=== PATIENT | female | born 1985 | race Caucasian/White ===

== ENCOUNTER 2017-11-06 20:28 | Emergency (ER) | payer BC, SELFPAY ==
[2017-11-06 20:32] VITALS: BP 147/88; PULSE 80; RESP 16; TEMP 36.8; O2SAT 98
--- NOTE | 2017-11-06 20:36 | ED.GENADUL_ITS ---
Disposition Clinical Impression: Renal colic on right side Disposition: HOME Condition: Good Instructions: Hydrocodone/Acetaminophen (By mouth), Renal Colic (ED), Ibuprofen (By mouth), Ondansetron (By mouth) Additional Instructions: Use ibuprofen for pain but if needed may use Vicodin for severe pain. Use Zofran for nausea. Follow-up with primary care at end of week if not better. Return to ED for fever, vomiting, worsening pain. Prescriptions: Hydrocodone Bit/Acetaminophen [Hydrocodon-Acetaminophen 5-325] 1 tab PO Q4H PRN #10 tablet PRN Reason: Ibuprofen 600 mg PO Q8H PRN #15 tablet PRN Reason: Pain Ondansetron ODT [Zofran Odt] 4 mg PO Q6H PRN #10 tabef PRN Reason: Nausea / Vomiting Referrals: Kelly Case [Primary Care Provider] - Medical Decision Making - Lab Data Results reviewed for labs ordered during visit: Yes - Medical Decision Making Patient fairly comfortable at this point. She is reporting minimal pain. She has previously passed all other stones on her own. Will place an IV to check CBC and chemistries. Will check a urine test and urinalysis. If we are able to control her pain easily and her labs and urinalysis look good we will forego imaging tonight. If there are any concerns will proceed with stone study as needed. Very comfortable at this point. Urinalysis with blood in it but no evidence of infection. White count normal. Kidney function normal. Patient comfortable without imaging studies tonight. Will send her home with instructions to use ibuprofen for pain with backup of Vicodin if needed. Zofran as needed for nausea. Strain urine and follow-up with primary care at end of week if still uncomfortable. Return to ED for fever, worsening pain, vomiting. Discharged in stable condition. Patient was given the state information sheet regarding narcotics. Informed consent was obtained. Review of the [place] prescription monitoring site reveals no narcotic prescriptions within the last year. History of Present Illness - General Chief complaint: Urinary Stated complaint: KIDNEY STONE? Time Seen by Provider: 11/06/17 20:36 Source: patient Mode of arrival: ambulatory Limitations: no limitations - History of Present Illness Initial comments: Patient presents to the ED with right lower quadrant, colicky, sharp, intermittent pain that started about 5 hours ago. It is very similar to previous kidney stones. She has had nausea and vomiting with intense pain. She has urgency but no dysuria or hematuria. She has had no fever. She has no back pain. All of her stones previously have been small passed on their own. She is otherwise healthy. She had been fine up until today. - Related Data Hydrocodone Bit/Acetaminophen [Hydrocodon-Acetaminophen 5-325] 1 tab PO Q4H PRN #10 tablet 11/06/17 Ibuprofen 600 mg PO Q8H PRN #15 tablet 11/06/17 Ondansetron ODT [Zofran Odt] 4 mg PO Q6H PRN #10 tabef 11/06/17 Allergies Allergy/AdvReac Type Severity Reaction Status Date / Time latex AdvReac Mild Skin Rash Unverified 11/06/17 20:36 Review of Systems Constitutional: denies: chills, fever Eyes: denies: eye discharge, vision change ENT: denies: ear pain, congestion Respiratory: denies: cough, shortness of breath Cardiovascular: denies: chest pain, syncope Gastrointestinal: abdominal pain, nausea, vomiting. denies: diarrhea Genitourinary: urgency, frequency. denies: dysuria, hematuria Musculoskeletal: denies: back pain Skin: denies: rash Neurological: denies: headache, weakness, numbness Past Medical History - Past Medical History kidney stones Surgical history: non-contributory - Social History Smoking status: former smoker General Exam - General Limitations: no limitations General appearance: alert, in no apparent distress - Head Head exam: Present: atraumatic, normocephalic - Eye Eye exam: Present: normal apperance - Neck Neck exam: Present: normal inspection, full ROM - Respiratory Respiratory exam: Present: normal lung sounds bilaterally - Cardiovascular Cardiovascular Exam: Present: regular rate, normal rhythm, normal heart sounds - GI/Abdominal GI/Abdominal exam: Present: soft. Absent: distended, tenderness, guarding, rebound - Extremities Exam Extremities exam: Present: normal inspection - Back Exam Back exam: Present: normal inspection, full ROM. Absent: CVA tenderness (R), CVA tenderness (L) - Neurological Exam Neurological exam: Present: alert, oriented X3, CN II-XII intact. Absent: motor sensory deficit - Psychiatric Psychiatric exam: Present: normal affect, normal mood - Skin Skin exam: Present: warm, dry, intact Course Vital Signs - 24 hr 11/06/17 20:32 Temperature 98.2 F Pulse 80 Respiratory 16 Rate Blood Pressure 147/88 Pulse Oximetry 98
[2017-11-06 21:04] LABS: Abs Immature Grans 0.03 k/cumm (0.0-0.09); Absolute Basophil Count 0.03 k/cumm (0.0-0.2); Absolute Eosinophil Count 0.04 k/cumm (0.0-0.7); Absolute Lymphocyte Count 2.32 k/cumm (1.2-3.4); Absolute Monocyte Count 0.74 k/cumm (0.11-0.7); Absolute Neutrophil Count 7.66 k/cumm (1.2-6.7); Basophils % 0.3; Eosinophils % 0.4; HCT 41.9 % (36.0-46.0); HGB 13.8 g/dL (12.0-15.5); Immature Grans % 0.3; Lymphocytes % 21.4; Mean Corp. HGB Concentration 32.9 g/dL (32.0-36.0); Mean Corpuscular Hemoglobin 29.9 pg (27.0-33.0); Mean Corpuscular Volume 90.9 fL (80-95); Mean Platelet Volume 9.3 fL (8.0-11.0); Monocytes % 6.8; Neutrophils % 70.8; Platelet Count 318 x1000/uL (130-400); RBC 4.61 m/cumm (4.00-5.20); White Blood Cell Count 10.82 k/cumm (4.4-10.8)
[2017-11-06 21:05] LABS: Bilirubin Negative (Negative); Blood Large (Negative); Clarity Clear; Glucose Negative (Negative); Ketones 40 mg/dL (Negative); Leukocyte Esterase Negative (Negative); Nitrite Negative (Negative); Specific Gravity 1.015 (1.005-1.025); Urobilinogen 0.2 EU/dL (Up TO 0.2); pH 5.5 (5-8)
[2017-11-06] MEDS: Ketorolac 15 MG/ML VIAL IVP (21:06)
[2017-11-06] MEDS: Lactated Ringers 1,000 ML 1000 ML IV (21:06)
[2017-11-06 21:17] LABS: Anion Gap 9.9 mmol/L (3-11); BUN 14 mg/dL (7-18); CO2 25.1 mmol/L (21.0-32.0); CREATININE 1.03 mg/dL (0.55-1.02); Calcium 9.5 mg/dL (8.5-10.1); Chloride 103 mmol/L (98-107); Glucose 96 mg/dL (70-100); Potassium 3.8 mmol/L (3.5-5.1); Sodium 138 mmol/L (136-145)
[2017-11-06 21:20] LABS: RBC >50 (0-2)
[2017-11-06 21:21] LABS: Bacteria Few HPF (Negative); C & S Indicated? Yes; Crystals Negative HPF (Negative); Epithelial Cells Few HPF (Negative); Mucus Trace (Negative)
[2017-11-06] MEDS: HYDROcodone 5/Acetaminophen 325 TAB PO (22:00)
[2017-11-06] MEDS: Ondansetron O.D.T. 4 MG TABEF PO (22:00)
[2017-11-06 22:07] VITALS: BP 144/81; PULSE 72; RESP 16; TEMP 36.9; O2SAT 100
== END 2017-11-06 22:07 | disposition home or self-care (01) ==
PROVIDERS: Emergency Provider Emergency Medicine; PCP Nurse Practitioner
DX: N23 Unspecified renal colic (principal); R11.2 Nausea with vomiting, unspecified; Z87.442 Personal history of urinary calculi
CPT/HCPCS: 36415; 80048; 81025; 96361; 96374; 99284; 81003; 81015; 85025; 87086; J1885

== ENCOUNTER 2017-12-27 09:33 | Outpatient (CLI) | payer BC, SELFPAY ==
[2017-12-27 11:17] LABS: Cholesterol 176 mg/dL (50-200); Glucose 100 mg/dL (70-100); HDL Cholesterol 69 mg/dL (40-60); LDL CHOLESTEROL 99 mg/dL (<100); Triglyceride 40 mg/dL (30-150)
== END 2017-12-27 09:53 ==
PROVIDERS: PCP Nurse Practitioner; Visit Provider Nurse Practitioner
DX: Z00.00 Encounter for general adult medical examination without abnormal findings (principal); Z13.1 Encounter for screening for diabetes mellitus; Z13.220 Encounter for screening for lipoid disorders
CPT/HCPCS: 36415; 80061; 82947; 83721

== ENCOUNTER 2018-01-08 10:02 | Emergency (ER) | payer BC, SELFPAY ==
[2018-01-08 10:34] VITALS: BP 153/90; PULSE 84; RESP 18; TEMP 36.7; O2SAT 100
--- NOTE | 2018-01-08 11:24 | ED.GENADUL_ITS ---
Discharge Plan Disposition Patient Disposition: HOME Condition: Fair Discharge Details Chief Complaint: Orthopedic Clinical Impression: Sprain of right wrist Primary Care Provider: Kelly Case ED Provider: Argenis Donovan Home Meds and New Rx's Prescriptions: New ibuprofen 600 mg tablet 600 mg PO TID PRN (Reason: pain) Qty: 20 RF: 0 Continue Cbd Oil RF: 0 Discharge Instructions Instructions: Wrist Sprain (ED) Additional Instructions: Encourage rest, ice, elevation. Tylenol and/or ibuprofen as needed for discomfort. Anti-inflammatory may help with the source of her discomfort. Please continue with the wrist brace while pain persist. Please follow-up with primary care in the next 1-2 weeks if pain continues. If you develop new or worsening symptoms please seek care urgently once again Referrals: Kelly Case [Primary Care Provider] - Discharge Data Discharge Date/Time-TO BE ENTERED AT DEPARTURE: 01/08/18 12:32 Medical Decision Making Patient is a 32-year-old [id number] female presenting today with chief complaint of ulnar-sided right wrist pain. She reports that she fell hiking 2 weeks ago. Fell on her outstretched right hand. States that immediately she is having discomfort approximately 2 days later the pain began to steadily increase along the ulnar side. Indicates the ulnar anterior aspect of the wrist is area of maximal discomfort. Reports she is been using CBD oil which has been helping with discomfort. Is not been taking any oral medications to help with pain. Did purchase an [id number] splint which she reports is also been helping. Pain is maximal with pronation supination movements. On exam, no swelling, ecchymosis or deformity is noted. She is focal point tenderness over the distal ulna. Full range of motion, she does express discomfort particularly with supination. Plan obtain imaging to evaluate for possible fracture. Patient is declining any pain medication at this time. LMP 2 weeks ago. X-rays reviewed by myself, I do not appreciate any acute bony abnormality. Still pending radiologist review Discussed my wet read with the patient. At this point, she is requesting discharge. I will call her with any abnormalities the radiologist notes. Will place patient in the universal wrist brace. Encourage rest, ice, elevation. Advise follow-up with primary care if pain persists over the next 1-2 weeks. We discussed new/worsening symptoms when to seek care urgently once again. All of her questions and concerns were addressed and she is in agreement this plan. No abnormalities noted by radiologist. HPI General Mode of arrival: ambulatory . Date/Time Provider Initiated Documentation: 01/08/18 11:16 . Limitations to Documentation: no limitations . Information obtained by: patient . History of Present Illness 32 year old F presents to the emergency department with the chief complaint of right wrist pain, described as mild, with intensity rated at 4. Quality is described as aching, and is localized to the right and upper extremity. Patient reports no radiation. Patient started experiencing this week(s) (2) and it has been intermittent. Immobilization improves symptom(s), Movement worsens symptoms . Patient notes no other symptoms.; denies cough, fever/ chills, rash and weakness. Patient did receive the following treatments prior to arrival, splint and other (CBD oil) Related Data Home Medications Medication Instructions Recorded Confirmed Cbd Oil 01/08/18 ibuprofen 600 mg PO TID PRN #20 tab 01/08/18 Previous Rx's Medication Instructions Recorded ibuprofen 600 mg PO TID PRN #20 tab 01/08/18 Allergies Allergy/AdvReac Type Severity Reaction Status Date / Time latex AdvReac Mild Skin Rash Unverified 01/08/18 10:38 General Stated Complaint: Orthopedic SHI: 4 Review of Systems Constitutional Reports as per HPI and Denies weakness Respiratory Reports as per HPI and Denies cough Musculoskeletal Reports as per HPI, Denies numbness and Denies tingling Integumentary/Breasts Reports as per HPI, Denies erythema, Denies rash, Denies skin pain, Denies skin swelling and Denies wounds Neurologic Reports as per HPI, Denies numbness, Denies radicular pain, Denies tingling, Denies paresthesias and Denies weakness [facility] Social History Smoking/Tobacco Use Status: Former Tobacco Use Exam Const General: cooperative, healthy appearing, comfortable, no acute distress, well developed and well groomed Nutritional Appearance: average body habitus and well nourished Orientation: alert and awake Resp Effort & Inspection: normal respiratory effort, able to speak in complete sentences and no respiratory distress Cardio Rate: regular rate Rhythm: regular rhythm Skin General skin exam: no rashes or lesions noted Lesions: no lesions Rashes: no rashes Trauma: no lacerations or abrasions Wounds: no wounds Neuro General: alert and awake Cognition: normal cognition Speech: speech normal Gait: normal gait Motor: muscle tone normal throughout Sensory Exam: no sensory deficits noted Extrem Right upper extremity: full ROM, normal capillary refill, no joint enlargement and wrist Details: tenderness, normal ROM and normal vascular exam; no swelling , no unusual warmth, no ecchymosis and no crepitus; abnormal to inspection ( tenderness over the anterior ulnar side of the wrist, point tender over this area. No laxity noted. Full ROM, pain maximal with supination and pronation. ) and no cyanosis Psych Appearance: grossly normal and well kempt Mental Status: mental status grossly normal Speech and Movement: speech and movement normal Mood: congruent mood Course Vital Signs Temperature 36.7 C 01/08/18 10:34 Pulse 84 01/08/18 10:34 Respiratory Rate 18 01/08/18 10:34 Blood Pressure 153/90 H 01/08/18 10:34 Pulse Oximetry 100 01/08/18 10:34 Temperature 36.7 C 01/08/18 10:34 Temperature Source Skin 01/08/18 10:34 Pulse 84 01/08/18 10:34 Respiratory Rate 18 01/08/18 10:34 Respiratory Effort 01/08/18 10:36 Blood Pressure 153/90 H 01/08/18 10:34 Blood Pressure Position Sitting 01/08/18 10:34 Pulse Oximetry 100 01/08/18 10:34 Pain Level 4 01/08/18 10:34
--- NOTE | 2018-01-08 12:01 | DI.RAD_ITS ---
SYMPTOM/DIAGNOSIS: FELL ON OUTSTRETCHED HAND, PAIN RIGHT WRIST: No fracture or dislocation is seen. IMPRESSION: Negative right wrist.
[2018-01-08 12:30] VITALS: BP 153/90; PULSE 84; RESP 18; TEMP 36.7; O2SAT 100
== END 2018-01-08 12:32 | disposition home or self-care (01) ==
PROVIDERS: Emergency Provider Physician Assistant; PCP Nurse Practitioner
DX: S63.501A Unspecified sprain of right wrist, initial encounter (principal); W18.39XA Other fall on same level, initial encounter; Y93.01 Activity, walking, marching and hiking
CPT/HCPCS: 29125; 99283; 73110; L3908

== ENCOUNTER 2019-01-08 12:43 | Emergency (ER) | payer OTHER, SELFPAY ==
[2019-01-08 12:53] VITALS: BP 140/80; PULSE 76; RESP 16; TEMP 36.6; O2SAT 98
--- NOTE | 2019-01-08 14:27 | DI.RAD_ITS ---
EXAM: XR WRIST RT COMPLETE INDICATION: wrist pain. COMPARISON: No exams were available for comparison TECHNIQUE: 2D digital imaging was performed. FINDINGS: No bony or joint abnormality is seen.
--- NOTE | 2019-01-08 14:53 | ED.GENADUL_ITS ---
Discharge Plan Disposition Patient Disposition: HOME Condition: Stable Discharge Details Chief Complaint: Orthopedic Clinical Impression: Right wrist sprain Primary Care Provider: Kelly Case ED Provider: Joshua Delacruz Home Meds and New Rx's Prescriptions: Continued Cbd Oil RF: 0 ibuprofen 600 mg tablet 600 mg PO TID PRN (Reason: pain) Qty: 20 RF: 0 Discharge Instructions Instructions: RICE Therapy (ED), Wrist Sprain (ED) Additional Instructions: You may continue to apply ice, rest the extremity, and use the provided wrist splint for the next 2 weeks. You may slowly advance activity as tolerated by pain. If not improving follow-up with orthopedist for reassessment. Stand Alone Forms: Work Release Referrals: Woo Spain MD [ [facility] STAFF PHYSICIAN] - (If not improving in the next 2 weeks) Discharge Data Discharge Date/Time-TO BE ENTERED AT DEPARTURE: 01/08/19 15:00 Medical Decision Making 5 days ago patient had torquing type motion while using a weed [employer] and getting caught in the weeds. She was at work at a [employer] when this occurred. Patient then minimize use which felt better but then 2 days ago patient went back to [employer] and performing a different job and due to the repetitive motion has noted some increase in pain and discomfort. Today when attempting to apply wrist splint she felt a popping sensation in her wrist and significant increase in pain and swelling. Physical exam shows dorsal wrist tenderness in the central aspect of the wrist. Patient does have both extension and flexion but are reduced by pain and discomfort along with rotation and abduction and abduction of the wrist. Given point tenderness I do feel radiological imaging is warranted to rule out acute fracture. Patient does state that she took ibuprofen just prior to arrival and is feeling better. Review of radiological imaging shows no acute findings noted. Patient placed in universal wrist splint and continued to recommend rest ice and use of splint for next 2 weeks and to slowly advance activity as tolerated. Patient given work note for activity modification for the next week and for allowance of use of wrist brace for the next 2 to 4 weeks. Patient to follow-up with orthopedist if not improving. After discussion of diagnosis and plan of care patient has no further needs, questions, or concerns and states clear understanding to return to the emergency department for any worsening symptoms. HPI General Mode of arrival: ambulatory . Date/Time Provider Initiated Documentation: 01/08/19 12:43 . Limitations to Documentation: no limitations . Information obtained by: patient and RN notes reviewed . History of Present Illness 33 year old F presents to the emergency department with the chief complaint of Right wrist injury, described as moderate, with intensity rated at 7. Quality is described as aching, and is localized to the right and upper extremity. Patient started experiencing this day(s) (5) and it has been constant. Rest improves symptom(s), Movement worsens symptoms . Patient did receive the following treatments prior to arrival, NSAID Related Data Home Medications Medication Instructions Recorded Confirmed Cbd Oil 01/08/18 ibuprofen 600 mg PO TID PRN #20 tab 01/08/18 Previous Rx's Medication Instructions Recorded ibuprofen 600 mg PO TID PRN #20 tab 01/08/18 Allergies Allergy/AdvReac Type Severity Reaction Status Date / Time latex AdvReac Mild Skin Rash Unverified 01/08/18 10:38 General Stated Complaint: Orthopedic SHI: 4 Review of Systems Cardiovascular Cardiovascular: Denies syncope Musculoskeletal Musculoskeletal: Reports as per HPI, Denies numbness and Denies tingling Integumentary/Breasts Skin/Breast: Denies rash, Denies sores and Denies wounds Neurologic Neurologic: Denies syncope, Denies numbness and Denies tingling PFSH Social History Smoking/Tobacco Use Status: Current every day Alcohol Intake: current Alcohol Intake frequency: a few times a week Drug use: Occasionally Substance use type: marijuana Do you feel safe at home: Yes Do you feel safe in your relationship?: Yes Exam Const General: cooperative and no acute distress Orientation: alert, awake and oriented x3 Resp Effort & Inspection: normal respiratory effort and able to speak in complete sentences Cardio Rate: regular rate Rhythm: regular rhythm Extrem General: normal exam except as noted Right upper extremity: wrist Details: normal to inspection, tenderness Location: of the dorsal wrist, abnormal ROM Details: pain with active ROM during, normal vascular exam and radial pulse present; no lacerations and no ecchymosis Course Vital Signs Vital signs: Vital Signs Temperature 36.6 C 01/08/19 12:53 Pulse 76 01/08/19 12:53 Respiratory Rate 16 01/08/19 12:53 Blood Pressure 140/80 01/08/19 12:53 Pulse Oximetry 98 01/08/19 12:53 Temperature 36.6 C 01/08/19 12:53 Temperature Source Tympanic 01/08/19 12:53 Pulse 76 01/08/19 12:53 Respiratory Rate 16 01/08/19 12:53 Respiratory Effort Non-Labored 01/08/19 14:28 Blood Pressure 140/80 01/08/19 12:53 Blood Pressure Position Sitting 01/08/19 12:53 Pulse Oximetry 98 01/08/19 12:53 Oxygen Delivery Method Room Air 01/08/19 12:53 Oxygen Flow Rate 0 01/08/19 12:53 Pain Level 5 01/08/19 14:30
== END 2019-01-08 15:00 | disposition home or self-care (01) ==
PROVIDERS: Emergency Provider Nurse Practitioner Family; PCP Nurse Practitioner
DX: S63.501A Unspecified sprain of right wrist, initial encounter (principal); X50.9XXA Other and unspecified overexertion or strenuous movements or postures, initial encounter; Y99.0 Civilian activity done for income or pay
CPT/HCPCS: 29125; 99284; 73110; 99283; L3908

== ENCOUNTER 2019-10-22 13:51 | Outpatient (REF) | payer SELFPAY ==
[2019-10-25 01:52] LABS: SARS-CoV-2 RNA Undetected (Undetected); SARS-CoV-2 Specimen Source Nasopharynx
== END 2019-10-22 14:11 ==
LOC: NCHCN 13:51
PROVIDERS: PCP Nurse Practitioner; Visit Provider Internal Medicine
DX: Z11.59 Encounter for screening for other viral diseases (principal)
CPT/HCPCS: U0003

== ENCOUNTER 2021-05-07 13:10 | Outpatient (REF) | payer BC, SELFPAY ==
[2021-05-07 22:27] LABS: Abs Immature Grans 0.04 10^3/uL (0.0-0.06); Absolute Basophil Count 0.06 10^3/uL (0.0-0.2); Absolute Eosinophil Count 0.11 10^3/uL (0.0-0.7); Absolute Lymphocyte Count 2.27 10^3/uL (1.2-3.4); Absolute Monocyte Count 1.02 10^3/uL (0.1-0.8); Absolute Neutrophil Count 6.13 10^3/uL (1.2-6.7); Basophils % 0.6; Eosinophils % 1.1; HCT 34.5 % (36.0-46.0); HGB 10.3 g/dL (11.2-15.7); Immature Grans % 0.4; Lymphocytes % 23.6; MCH 25.8 pg (27.0-33.0); MCHC 29.9 % (32.0-36.0); MCV 86.3 fL (80-95); Monocytes % 10.6; Neutrophils % 63.7; Nucleated RBC 0 %; Platelet Count 530 10^3/uL (130-400); RDW 13.2 % (11.7-14.6); RDW-SD 41.8 fL; WBC 9.63 10^3/uL (4.4-10.8)
[2021-05-07 22:39] LABS: ALT 49 U/L (14-59); AST 21 U/L (15-37); Albumin 4.3 g/dL (3.4-5.0); Alkaline Phosphatase 70 U/L (46-116); Anion Gap 11.4 mmol/L (3-11); BUN 9 mg/dL (7-18); Bilirubin, Total 0.4 mg/dL (0.2-1.0); CO2 25.6 mmol/L (21.0-32.0); CREATININE 0.8 mg/dL (0.55-1.02); Calcium 9.1 mg/dL (8.5-10.1); Chloride 102 mmol/L (98-107); Glucose 114 mg/dL (74-106); INR 0.9 (0.9-1.1); Potassium 4.2 mmol/L (3.5-5.1); Prothrombin Time 9.2 sec (9.3-11.0); Sodium 139 mmol/L (136-145); Total Protein 8.2 g/dL (6.4-8.2)
== END 2021-05-07 13:11 | disposition home or self-care (01) ==
LOC: LBN 13:10
PROVIDERS: PCP Nurse Practitioner; Visit Provider Family Medicine
DX: N93.8 Other specified abnormal uterine and vaginal bleeding (principal)
CPT/HCPCS: 80053; 85025; 85610; 85730

== ENCOUNTER 2021-05-17 18:51 | Outpatient (REF) | payer BC, SELFPAY ==
[2021-05-19 15:30] LABS: Chlamydia Result Negative (Negative); GC Result Negative (Negative)
== END 2021-05-17 18:52 | disposition home or self-care (01) ==
LOC: LBN 18:51
PROVIDERS: PCP Nurse Practitioner; Visit Provider Nurse Practitioner Women's Health
DX: Z11.3 Encounter for screening for infections with a predominantly sexual mode of transmission (principal)
CPT/HCPCS: 87491; 87591

== ENCOUNTER 2021-05-23 16:03 | Outpatient (REF) | payer BC, SELFPAY ==
--- NOTE | 2021-05-23 15:15 | ENDOMET_PTH ---
PATIENT: Thee Vasquez LOC: [facility] U#:[id number] AGE/SX: 35/F ROOM: RE05/23/[address]: Lisa York NP : 1985 BED: DIS: 05/23/2021 SPEC #: [id number] RECD: 05/23/21 17:30 STATUS: OLIVIER REMattie #: [id number] EDWARD: 05/23/21 15:[address]: Jaylen VASQUEZ,Lisa DEPT: Surgical Specimen RECD BY: Chelsea Paulson ENTERED: 05/23/21 17:31 SP TYPE: Endomet OTHR DR: Kelly Case Tissues: 1 - ENDOMETRIUM BX/CURRETTE Procedures: GROSS AND MICRO LEVEL 4 Comments: [id number]
== END 2021-05-23 16:04 | disposition home or self-care (01) ==
LOC: LBN 16:03
PROVIDERS: PCP Nurse Practitioner; Visit Provider Nurse Practitioner Women's Health
DX: R87.618 Other abnormal cytological findings on specimens from cervix uteri (principal)
CPT/HCPCS: 88305

== ENCOUNTER 2021-06-05 10:10 | Emergency (ER) | payer BC, SELFPAY ==
[2021-06-05 10:15] VITALS: BP 160/77; PULSE 91; RESP 16; TEMP 36.2; O2SAT 100
--- NOTE | 2021-06-05 11:45 | VAG_PTH ---
PATIENT: Thee Vasquez LOC: ER U#:[id number] AGE/SX: 35/F ROOM: RE06/05/[address]: Nasir Rivera : 1985 BED: DIS: 06/05/2021 SPEC #: [id number] RECD: 06/06/21 12:42 STATUS: OLIVIER REQ #: [id number] EDWARD: 06/05/21 11:[address]: Nasir Rivera DEPT: Surgical Specimen RECD BY: Chelsea Paulson ENTERED: 06/06/21 12:43 SP TYPE: VAG OTHR DR: Juliann Phillips Tissues: 1 - VAGINAL BIOPSY Procedures: GROSS AND MICRO LEVEL 4 Comments: [id number]
--- NOTE | 2021-06-05 12:05 | ED.GENADUL_ITS ---
Discharge Plan Disposition Patient Disposition: HOME Condition: Stable Discharge Details Clinical Impression: Encounter for IUD removal, Abnormal tissue in uterus Primary Care Provider: Kelly Case ED Provider: Nasir Rivera Home Meds and New Rx's Prescriptions: Continued elderberry fruit 200 mg capsule PO 0RF norethindrone acetate [Aygestin] 5 mg tablet 5 mg PO DAILY Qty: 60 1RF Cbd Oil 0RF ibuprofen 600 mg tablet 600 mg PO TID PRN (Reason: pain) Qty: 20 0RF ashwagandha root extract 300 mg Capsule 300 mg PO DAILY 0RF No Action Mirena 20 mcg/24 hours (7 yrs) 52 mg intrauterine device 1 insert intrauterine ONCE Qty: 1 0RF Discharge Instructions Additional Instructions: Please take medication as prescribed by gynecology and as discussed with Dr. Ledesma. Please contact your oil field equipment mechanic arrange follow-up later this week. Return to the ER immediately for any worsening or new concerning symptoms. Referrals: Lisa York NP [NURSE PRACTITIONER] - Medical Decision Making 35-year-old female with history of uterine fibroid, 2 weeks status post IUD placement, recently stopped progesterone therapy, now menstruating over the past 2 days, past large abnormal tissue from her vagina this morning and concerned that IUD is partially dislodged. Patient notes that she has had multiple negative tests over the past month and has not been sexually active for greater than a month. I consulted Dr. Ledesma, on-call gynecology, discussed ED presentation course, she evaluated the patient bedside and removed IUD. She will be starting oral contraceptive and prescribing this for the patient. She notes she will be set tissue for pathology. She recommends follow-up in a week with her oil field equipment mechanic. HPI General Mode of arrival: ambulatory . Date/Time Provider Initiated Documentation: 06/05/21 10:39 . Limitations to Documentation: no limitations . Information obtained by: patient . HPI Narrative: 35-year-old female with history of heavy vaginal bleeding and uterine fibroid, status post IUD placement 2 weeks ago, recently stopped progesterone, here with chief complaint of IUD concern. Patient notesmenstrual bleeding and intermittent lower abdominal cramping started 2 days ago and has persisted. Cramping this morning was severe. She went to take a shower and notes she passed a large fibrous tissue which she has brought in for examination. She notes that he checked her IUD and it appears to be partially dislodged. She is requesting removal. Patient denies abdominal pain at this time. No associated fever. No urinary symptoms. Related Data Home Medications Medication Instructions Recorded Confirmed Cbd Oil 01/08/18 05/24/21 ibuprofen 600 mg tablet 600 mg PO TID PRN #20 tab 01/08/18 06/05/21 elderberry fruit 200 mg capsule mg PO 05/17/21 05/24/21 norethindrone acetate 5 mg tablet 5 mg PO DAILY #60 tab 05/17/21 06/05/21 (Aygestin) levonorgestrel 20 mcg/24 hours (7 1 insert INTRAUTERINE ONCE #1 ea 05/24/21 06/05/21 yrs) 52 mg intrauterine device (Mirena) ashwagandha root extract 300 mg 300 mg PO DAILY 06/05/21 06/05/21 capsule Previous Rx's Medication Instructions Recorded ibuprofen 600 mg tablet 600 mg PO TID PRN #20 tab 01/08/18 norethindrone acetate 5 mg tablet 5 mg PO DAILY #60 tab 05/17/21 (Aygestin) levonorgestrel 20 mcg/24 hours (7 1 insert INTRAUTERINE ONCE #1 ea 05/24/21 yrs) 52 mg intrauterine device (Mirena) Allergies Allergy/AdvReac Type Severity Reaction Status Date / Time latex AdvReac Mild Skin Rash Verified 06/05/21 10:22 General 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 Spontaneously expelled Mirena ring heavy flow. Abnormal tissue in uterus (Acute) 06/05/2021. Probable decidual cast sent to pathology for analysis. Uterine fibroid (Acute) IUD surveillance (Acute 05/23/21) Mirena Depression (Chronic) Migraine (Chronic) Asthma (Chronic) Anemia due to blood loss (Acute) Abnormal uterine bleeding (AUB) (Acute) Smoker (Acute) Family History Father Hyperlipidemia Hypertension Mother Hyperlipidemia Hypertension Thyroid condition Maternal Grandmother Osteoporosis Social History Smoking/Tobacco Use Status: Current every day Smoking risk assessment performed?: Yes Alcohol Intake: current Alcohol Intake frequency: a few times a week Drug use: Occasionally Substance use type: marijuana and hallucinogens Do you feel safe at home: Yes Do you feel safe in your relationship?: Yes Female Reproductive History Menstrual control method: pills and condoms History History 0 Para Hx # Term Pregnancies Multiple births Hx # Pregnancies Ectopic pregnancies AB induced Hx Number of Living Children AB spontaneous Exam Const General: cooperative and no acute distress HENMT Mouth: moist mucous membranes Eyes Conjunctivae: normal conjunctivae Sclera: normal sclerae Resp Auscultation: clear to auscultation bilaterally Cardio Rate: regular rate and not tachycardic Rhythm: regular rhythm GI Palpation: soft, not firm, no guarding, no masses, not rigid and nontender Neuro General: patient alert, patient awake and tone normal Course Vital Signs Vital signs: Vital Signs Temperature 36.2 C L 06/05/21 10:15 Pulse 91 H 06/05/21 10:15 Respiratory Rate 16 06/05/21 10:15 Blood Pressure 160/77 H 06/05/21 10:15 Pulse Oximetry 100 06/05/21 10:15 Temperature 36.2 C L 06/05/21 10:15 Temperature Source Skin 06/05/21 10:15 Pulse 91 H 06/05/21 10:15 Respiratory Rate 16 06/05/21 10:15 Respiratory Effort 06/05/21 10:15 Blood Pressure 160/77 H 06/05/21 10:15 Blood Pressure Position Sitting 06/05/21 10:15 Pulse Oximetry 100 06/05/21 10:15 Oxygen Delivery Method Room Air 06/05/21 10:15 Oxygen Flow Rate 0 06/05/21 10:15 Pain Level 1 06/05/21 10:53
--- NOTE | 2021-06-05 12:09 | GCONE_ITS ---
Date of service: 06/05/21 Time of Service: 12:09 Assessment and Plan Assessment and plan (1) Encounter for IUD removal: Status: Acute Assessment and plan: Patient will begin norethindrone acetate 5 mg every 6 hours until her bleeding has subsided. (2) Abnormal tissue in uterus: Status: Acute Assessment and plan: Tissue was most like a decidual cast as result of progesterone treatment. At the patient's request it has been sent to pathology for analysis. (3) Abnormal uterine bleeding (AUB): Status: Acute Assessment and plan: She desires a repeat IUD placement. The plan at this time is to have her contact the office on 06/06/2021 to speak with Makenzie York nurse practitioner regarding plan for care. (4) Smoker: Status: Acute Assessment and plan: Patient remains tobacco user. She is actively attempting to quit but has not done so. She is not a candidate for estrogen-containing OCPs. She indicates that she does not like the effect of estrogen containing OCPs and would declined them even if she were a non-smoker. History of Present Illness History of Present Illness Chief Complaint: Onset of heavy menses, passage of tissue, expelled Mirena IUD Consults Consult date: 06/05/21 Requesting physician: Nasir Rivera Review of Systems Narrative: Patient is a 35-year-old G0 female with a history of abnormal uterine bleeding recently treated with a course of norethindrone acetate followed by the insertion of her Mirena IUD. Her bleeding subsided until approximately 3 days ago when she began what she felt was irregular menses. This morning her rash bleeding increase in amount and she began experiencing uterine cramping. She p resented to emergency room after passing a piece of tissue which appears to be a decidual cast. The body of her her IUD was palpable at the external os when she arrived in the emergency room. Constitutional Constitutional: Reports system reviewed and no additional complaints, except as documented PFSH All Active Problems Encounter for IUD removal (Acute) 06/05/2021. Spontaneously expelled Mirena ring heavy flow. Abnormal tissue in uterus (Acute) 06/05/2021. Probable decidual cast sent to pathology for analysis. Uterine fibroid (Acute) IUD surveillance (Acute 05/23/21) Mirena Depression (Chronic) Migraine (Chronic) Asthma (Chronic) Anemia due to blood loss (Acute) Abnormal uterine bleeding (AUB) (Acute) Smoker (Acute) Family History Father Hyperlipidemia Hypertension Mother Hyperlipidemia Hypertension Thyroid condition Maternal Grandmother Osteoporosis Social History Smoking/Tobacco Use Status: Current every day Smoking risk assessment performed?: Yes Alcohol Intake: current Alcohol Intake frequency: a few times a week Drug use: Occasionally Substance use type: marijuana and hallucinogens Do you feel safe at home: Yes Do you feel safe in your relationship?: Yes Female Reproductive History Menstrual control method: pills and condoms History History 0 Para Hx # Term Pregnancies Multiple births Hx # Pregnancies Ectopic pregnancies AB induced Hx Number of Living Children AB spontaneous Exam Const General: no acute distress Nutritional Appearance: obese Orientation: alert, awake and oriented x3 Resp Effort & Inspection: normal respiratory effort External Female Exam: normal external appearance Speculum Exam - Vagina: normal appearance of the vagina and abnormal vaginal discharge (Serous sanguinous blood in the vaginal vault.) Speculum Exam - Cervix: cervical os open (Tissue collected from external os and sent to pathology.) and other (Mirena IUD string was grasped and delivered intact. Well-tolerated by bharat) OB/External & Speculum: cervical os open (Tissue collected from external os and sent to pathology.) Psych Appearance: grossly normal Mental Status: mental status grossly normal Speech and Movement: speech and movement normal Mood: congruent mood Affect: normal affect Results Last Vital Signs Temp 97.2 F L 06/05/21 10:15 Pulse 91 H 06/05/21 10:15 Resp 16 06/05/21 10:15 BP 160/77 H 06/05/21 10:15 Pulse Ox 100 06/05/21 10:15
== END 2021-06-05 12:21 | disposition home or self-care (01) ==
PROVIDERS: Emergency Provider Student in an Organized Health Care Education/Training Program; PCP Nurse Practitioner Family
DX: N93.9 Abnormal uterine and vaginal bleeding, unspecified (principal); N84.0 Polyp of corpus uteri; N85.8 Other specified noninflammatory disorders of uterus; R10.9 Unspecified abdominal pain; Z30.432 Encounter for removal of intrauterine contraceptive device; T83.32XA Displacement of intrauterine contraceptive device, initial encounter
CPT/HCPCS: 88305; 99281; 58301; 99282

== ENCOUNTER 2021-06-15 17:41 | Outpatient (REF) | payer BC, SELFPAY ==
--- NOTE | 2021-06-15 14:30 | PAPFT_PTH ---
PATIENT: Thee Vasquez LOC: [facility] U#:[id number] AGE/SX: 35/F ROOM: RE06/15/[address]: Lisa York NP : [id number] BED: DIS: 06/15/2021 SPEC #: [id number] RECD: 06/15/21 18:08 STATUS: OLIVIER REMattie #: [id number] EDWARD: 06/15/21 14:[address]: Lisa York NP DEPT: [facility] Cytology RECD BY: Chelsea Paulson ENTERED: 06/15/21 18:08 SP TYPE: PAPFT OTHR DR: Juliann Phillips Tissues: 1 - CX/ENDOCX FOR PAP SMEARS Procedures: PAP THIN PREP/UVM Screening HPV DNA PROBE Comments: [id number]
== END 2021-06-15 17:42 | disposition home or self-care (01) ==
LOC: LBN 17:41
PROVIDERS: PCP Nurse Practitioner Family; Visit Provider Nurse Practitioner Women's Health
DX: Z12.4 Encounter for screening for malignant neoplasm of cervix (principal); Z11.51 Encounter for screening for human papillomavirus (HPV)
CPT/HCPCS: 88142; 87624

== ENCOUNTER 2021-07-30 13:25 | Emergency (ER) | payer BC, SELFPAY ==
[2021-07-30 13:32] VITALS: BP 138/77; PULSE 83; RESP 16; TEMP 36.4; O2SAT 99
[2021-07-30 14:34] LABS: Abs Immature Grans 0.03 10^3/uL (0.0-0.06); Absolute Basophil Count 0.07 10^3/uL (0.0-0.2); Absolute Eosinophil Count 0.15 10^3/uL (0.0-0.7); Absolute Lymphocyte Count 2.71 10^3/uL (1.2-3.4); Absolute Monocyte Count 0.98 10^3/uL (0.1-0.8); Absolute Neutrophil Count 6.57 10^3/uL (1.2-6.7); Basophils % 0.7; Eosinophils % 1.4; HCT 34.4 % (36.0-46.0); HGB 10.1 g/dL (11.2-15.7); Immature Grans % 0.3; Lymphocytes % 25.8; MCH 22.5 pg (27.0-33.0); MCHC 29.4 % (32.0-36.0); MCV 77 fL (80-95); MPV 8.5 fL (8.0-11.0); Monocytes % 9.3; Neutrophils % 62.5; Platelet Count 428 10^3/uL (130-400); RBC 4.49 10^6/uL (3.93-5.22); RDW 18.6 % (11.7-14.6); RDW-SD 50.7 fL; WBC 10.51 10^3/uL (4.4-10.8)
[2021-07-30 14:39] LABS: Bilirubin Negative (Negative); Blood Negative (Negative); Clarity Clear (Clear); Glucose Negative (Negative); Ketones Negative (Negative); Leukocyte Esterase Negative (Negative); Nitrite Negative (Negative); Specific Gravity 1.025 (1.005-1.025); Urobilinogen 0.2 EU/dL (Up TO 0.2)
--- NOTE | 2021-07-30 15:16 | ED.GENADUL_ITS ---
Discharge Plan Disposition Patient Disposition: HOME Condition: Improving Discharge Details Clinical Impression: IUD surveillance, Anemia due to blood loss Primary Care Provider: Unknown,Unknown ED Provider: Joshua Delacruz Home Meds and New Rx's Prescriptions: No Action ketamine 100 mg ronak sublingual Label Comments: pt reports taking 900 mg q weekly for therapy. elderberry fruit 200 mg capsule PO Mirena 20 mcg/24 hours (7 yrs) 52 mg intrauterine device 1 insert intrauterine ONCE Qty: 1 0RF Cbd Oil ibuprofen 600 mg tablet 600 mg PO TID PRN (Reason: pain) Qty: 20 0RF ashwagandha root extract 300 mg Capsule 300 mg PO DAILY Discharge Instructions Instructions: Anemia (ED) Additional Instructions: At this point it appears that your IUD is stable and your anemia has improved slightly since your lab testing in the office earlier this week. You have been placed on care management list for follow-up with [facility] earlier this week for further discussion and evaluation of your IUD. Due to the fact that we do not have ultrasound availability today you may need further testing and if you have any worsening of symptoms including fever chills, significant vaginal hemorrhaging or discharge, abdominal pain, or further concerns return immediately to the emergency department for further evaluation. Referrals: [facility] [Provider Group] - 3 days Discharge Data Discharge Date/Time-TO BE ENTERED AT DEPARTURE: 07/30/21 15:25 Medical Decision Making Patient presenting to the emergency department for sensation that her IUD might be migrating lower. She states she was seen earlier this week and had a reassuring checkup and had no further vaginal bleeding or discharge after that appointment. Then yesterday evening she started having some mild cramping which were regular for her menstrual cycle and some spotting. Patient states that the symptoms have pretty much resolved but today in the shower she noticed that the IUD string was significantly more in the vaginal canal. Patient denies any other symptoms. Physical exam is unremarkable for any worrisome or emergent causes but of notation was approximately 2 inches of IUD string was noted in the vaginal canal but no obvious signs of the IUD in the cervical os. Given patient's recent anemia and irregular bleeding we will plan to check urinalysis and test along with CBC. Reviewed labs and patient is not , no worrisome findings or concerning findings on urinalysis, and CBC actually shows continued anemia but overall improvement with no signs of worsening. Discussed with patient follow-up with [facility] for consideration of of alternatives to IUD if she continues to have issues and follow-up with primary care provider which she is already plan to discuss with them her anemia. After discussion of diagnosis and plan of care patient has no further needs, questions, or concerns and states clear understanding to return to the emergency department for any worsening symptoms. Lab Data Lab results reviewed: Yes I reviewed the patient's lab results. Labs: Laboratory Tests Range/Units 07/30/21 07/30/21 14:30 14:30 WBC (4.4-10.8) 10^3/uL 10.51 RBC (3.93-5.22) 10^6/uL 4.49 Hgb (11.2-15.7) g/dL 10.1 L Hct (36.0-46.0) % 34.4 L MCV (80-95) fL 77 L MCH (27.0-33.0) pg 22.5 L MCHC (32.0-36.0) % 29.4 L RDW (11.7-14.6) % 18.6 H Plt Count (130-400) 10^3/uL 428 H MPV (8.0-11.0) fL 8.5 Immature Gran % 0.3 Neutrophils % 62.5 Lymphocytes % 25.8 Monocytes % 9.3 Eosinophils % 1.4 Basophils % 0.7 Nucleated RBC % (0.0-0.3) % 0.0 Absolute Neutrophils (1.2-6.7) 10^3/uL 6.57 Absolute Lymphocytes (1.2-3.4) 10^3/uL 2.71 Absolute Monocytes (0.1-0.8) 10^3/uL 0.98 H Absolute Eosinophils (0.0-0.7) 10^3/uL 0.15 Absolute Basophils (0.0-0.2) 10^3/uL 0.07 Urine Color (Yellow) Yellow Urine Clarity (Clear) Clear Urine pH (5-8) 7.0 Ur Specific [place] (1.005-1.025) 1.025 Urine Protein (Negative) mg/dL Negative Urine Ketones (Negative) mg/dL Negative Urine Blood (Negative) Negative Urine Nitrite (Negative) Negative Urine Bilirubin (Negative) Negative Urine Urobilinogen (Up TO 0.2) EU/dL 0.2 Ur Leukocyte Esterase (Negative) Negative Urine Glucose (Negative) mg/dL Negative HPI General Mode of arrival: ambulatory . Date/Time Provider Initiated Documentation: 07/30/21 13:26 . Limitations to Documentation: no limitations . Information obtained by: patient, RN notes reviewed and old records reviewed . History of Present Illness 36 year old F presents to the emergency department with the chief complaint of IUD coming out, described as mild, with intensity rated at 1. Quality is described as other (cramping), and is localized to the pelvis. Patient reports no radiation. Patient started experiencing this hour(s) (12) and it has been intermittent. No relieving factors improve symptom(s), No exacerbating factors reported . Patient notes no other symptoms.. Patient did receive the following treatments prior to arrival, NSAID Related Data Home Medications Medication Instructions Recorded Confirmed Cbd Oil 01/08/18 07/27/21 ibuprofen 600 mg tablet 600 mg PO TID PRN pain #20 tabs 01/08/18 07/30/21 elderberry fruit 200 mg capsule mg PO 05/17/21 07/27/21 levonorgestrel 20 mcg/24 hours (7 1 insert intrauterine ONCE #1 ea 05/24/21 07/30/21 yrs) 52 mg intrauterine device (Mirena) ashwagandha root extract 300 mg 300 mg PO DAILY 06/05/21 07/30/21 capsule ketamine 100 mg sublingual ronak mg sublingual 07/27/21 07/27/21 Previous Rx's Medication Instructions Recorded ibuprofen 600 mg tablet 600 mg PO TID PRN pain #20 tabs 01/08/18 levonorgestrel 20 mcg/24 hours (7 1 insert intrauterine ONCE #1 ea 05/24/21 yrs) 52 mg intrauterine device (Mirena) Allergies Allergy/AdvReac Type Severity Reaction Status Date / Time latex AdvReac Mild Skin Rash Verified 07/30/21 13:36 General Stated Complaint: [employer] SHI: 4 Review of Systems Constitutional Constitutional: Denies body ache(s), Denies chills, Denies fever(s), Denies malaise and Denies weakness Cardiovascular Cardiovascular: Denies chest pain Respiratory Respiratory: Reports system reviewed and no additional complaints, except as documented Gastrointestinal Gastrointestinal: Denies abdominal pain, Denies nausea and Denies vomiting Genitourinary Genitourinary: Reports as per HPI, Reports abnormal vaginal bleeding, Denies hematuria, Denies dysuria, Reports pelvic pain and Denies vaginal discharge Neurologic Neurologic: Denies confusion and Denies weakness Psychiatric Psychiatric: Denies confusion PFSH All Active Problems Uterine fibroid (Acute) IUD surveillance (Acute 06/15/21) Mirena 05/23/21 Insertion 06/05/21 Spontaneous expulsion 06/15/21 Repeat insertion Depression (Chronic) Migraine (Chronic) Asthma (Chronic) Anemia due to blood loss (Acute) Abnormal uterine bleeding (AUB) (Acute) Smoker (Acute) Family History Father Hyperlipidemia Hypertension Mother Hyperlipidemia Hypertension Thyroid condition Maternal Grandmother Osteoporosis Social History Smoking/Tobacco Use Status: Current every day Tobacco Type: cigarettes Smoking risk assessment performed?: Yes Alcohol Intake: current Alcohol Intake frequency: a few times a week Drug use: Occasionally Substance use type: marijuana and hallucinogens Details: LSD occassionally Do you feel safe at home: Yes Do you feel safe in your relationship?: Yes Female Reproductive History Menstrual control method: pills and condoms History History 0 Para Hx # Term Pregnancies Multiple births Hx # Pregnancies Ectopic pregnancies AB induced Hx Number of Living Children AB spontaneous Exam Const General: cooperative and no acute distress Orientation: alert, awake and oriented x3 Resp Effort & Inspection: normal respiratory effort and able to speak in complete sentences Auscultation: clear to auscultation bilaterally Cardio Rate: regular rate Rhythm: regular rhythm Heart Sounds: S1 normal and S2 normal GI Palpation: nontender External Female Exam: normal external appearance Speculum Exam - Vagina: normal appearance of the vagina, no swelling, nontender and other (approx 2 visible IUD string) Speculum Exam - Cervix: normal appearance of the cervix Back/Spine/Pelvis Back: no CVA tenderness Neuro General: patient alert, patient awake and patient oriented x3 Extrem General: capillary refill normal Course Vital Signs Vital signs: Vital Signs Temperature 36.4 C L 07/30/21 13:32 Pulse 83 07/30/21 13:32 Respiratory Rate 16 07/30/21 13:32 Blood Pressure 138/77 07/30/21 13:32 Pulse Oximetry 99 07/30/21 13:32 Temperature 36.4 C L 07/30/21 13:32 Temperature Source Temporal Artery Scan 07/30/21 13:32 Pulse 83 07/30/21 13:32 Respiratory Rate 16 07/30/21 13:32 Respiratory Effort 07/30/21 13:32 Blood Pressure 138/77 07/30/21 13:32 Blood Pressure Position Sitting 07/30/21 13:32 Pulse Oximetry 99 07/30/21 13:32 Oxygen Delivery Method Room Air 07/30/21 13:32 Oxygen Flow Rate 0 07/30/21 13:32 Pain Level 1 07/30/21 13:59 Lab/Test Results Lab/Test Results: Laboratory Tests Range/Units 07/30/21 07/30/21 14:30 14:30 WBC (4.4-10.8) 10^3/uL 10.51 RBC (3.93-5.22) 10^6/uL 4.49 Hgb (11.2-15.7) g/dL 10.1 L Hct (36.0-46.0) % 34.4 L MCV (80-95) fL 77 L MCH (27.0-33.0) pg 22.5 L MCHC (32.0-36.0) % 29.4 L RDW (11.7-14.6) % 18.6 H Plt Count (130-400) 10^3/uL 428 H MPV (8.0-11.0) fL 8.5 Immature Gran % 0.3 Neutrophils % 62.5 Lymphocytes % 25.8 Monocytes % 9.3 Eosinophils % 1.4 Basophils % 0.7 Nucleated RBC % (0.0-0.3) % 0.0 Absolute Neutrophils (1.2-6.7) 10^3/uL 6.57 Absolute Lymphocytes (1.2-3.4) 10^3/uL 2.71 Absolute Monocytes (0.1-0.8) 10^3/uL 0.98 H Absolute Eosinophils (0.0-0.7) 10^3/uL 0.15 Absolute Basophils (0.0-0.2) 10^3/uL 0.07 Urine Color (Yellow) Yellow Urine Clarity (Clear) Clear Urine pH (5-8) 7.0 Ur Specific [place] (1.005-1.025) 1.025 Urine Protein (Negative) mg/dL Negative Urine Ketones (Negative) mg/dL Negative Urine Blood (Negative) Negative Urine Nitrite (Negative) Negative Urine Bilirubin (Negative) Negative Urine Urobilinogen (Up TO 0.2) EU/dL 0.2 Ur Leukocyte Esterase (Negative) Negative Urine Glucose (Negative) mg/dL Negative POC- Test(urine) Negative
--- NOTE | 2021-07-30 15:51 | NUR.NOTE ---
Referral faxed to [facility] for IUD evaluation in 3 to 5 days. Ana Caldwell
== END 2021-07-30 15:25 | disposition home or self-care (01) ==
PROVIDERS: Emergency Provider Nurse Practitioner Family
DX: D62 Acute posthemorrhagic anemia (principal); N93.8 Other specified abnormal uterine and vaginal bleeding; T83.39XA Other mechanical complication of intrauterine contraceptive device, initial encounter
CPT/HCPCS: 36415; 81025; 99283; 81003; 85025